=== PATIENT | male | born 1940 | race Caucasian/White ===

== ENCOUNTER 2018-01-22 14:15 | Outpatient (CLI) | payer OTHER ==
[~2018-01-22 14:15] MED LIST: AMARYL; AVAPRO150 MG; CIPRO500 MG PO; METFORMIN HCL500 M1 PO; NORVASC10 MG; OSEL75CA PO; ZYNCOF 20-400120 ML PO
== END 2018-01-22 14:16 | disposition home or self-care (01) ==
LOC: LAB 14:15
DX: N30.00 Acute cystitis without hematuria (principal)

== ENCOUNTER 2018-05-18 07:47 | Outpatient (CLI) | payer OTHER | END 2018-05-18 07:59 | disposition home or self-care (01) | LOC: LAB 07:47 | DX: N30.00 Acute cystitis without hematuria (principal) ==

== ENCOUNTER 2018-07-10 07:31 | Outpatient (CLI) | payer OTHER | END 2018-07-10 07:40 | disposition home or self-care (01) | LOC: LAB 07:31 | DX: N30.00 Acute cystitis without hematuria (principal) ==

== ENCOUNTER 2018-10-15 07:53 | Outpatient (CLI) | payer OTHER | END 2018-10-15 13:09 | disposition home or self-care (01) | LOC: LAB 07:53 | DX: N30.00 Acute cystitis without hematuria (principal) ==

== ENCOUNTER 2018-12-22 11:38 | Emergency (ER) | payer OTHER ==
[~2018-12-22] VITALS: Ht 172.7 cm; Wt 95.3 kg
== END 2018-12-22 14:32 | disposition home or self-care (01) ==
LOC: ER 11:38
DX: B34.9 Viral infection, unspecified (principal); J11.1 Influenza due to unidentified influenza virus with other respiratory manifestations

== ENCOUNTER → 2019-01-27 07:28 | Outpatient (CLI) | payer OTHER | END | disposition home or self-care (01) | LOC: LAB 07:28 | DX: C67.9 Malignant neoplasm of bladder, unspecified (principal) ==

== ENCOUNTER 2019-04-02 07:18 | Outpatient (CLI) | payer OTHER | END 2019-04-02 07:22 | disposition home or self-care (01) | LOC: LAB 07:18 | DX: N30.00 Acute cystitis without hematuria (principal) ==

== ENCOUNTER 2019-10-15 07:31 | Outpatient (CLI) | payer OTHER | END 2019-10-15 07:43 | disposition home or self-care (01) | LOC: LAB 07:31 | DX: N30.00 Acute cystitis without hematuria (principal) ==

== ENCOUNTER 2019-12-31 07:25 | Outpatient (CLI) | payer OTHER | END 2019-12-31 07:26 | disposition home or self-care (01) | LOC: TOM 07:25 | DX: R10.31 Right lower quadrant pain (principal); R10.32 Left lower quadrant pain ==

== ENCOUNTER 2021-09-03 10:24 | Emergency (ER) | payer OTHER ==
[~2021-09-03] VITALS: Ht 172.7 cm; Wt 91.2 kg
[2021-09-03] MEDS ORDERED: TUSSI PRES-B L480 ML PO (14:43)
[2021-09-03] MEDS ORDERED: LEVOFLOXACIN500 MG PO (14:43)
== END 2021-09-03 14:49 | disposition home or self-care (01) ==
LOC: ER 10:24
DX: J06.9 Acute upper respiratory infection, unspecified (principal); Z03.818 Encounter for observation for suspected exposure to other biological agents ruled out; R05.9 Cough, unspecified; R53.81 Other malaise

== ENCOUNTER 2021-09-13 09:31 | Inpatient (IN) | payer OTHER ==
[~2021-09-13] VITALS: Ht 172.7 cm; Wt 91.6 kg
[~2021-09-13 09:31] MED LIST changes: +LEVOFLOXACIN500 MG PO; +TUSSI PRES-B L480 ML PO
[2021-09-14] MEDS ORDERED: SIMVASTATIN20 MG (08:24)
[2021-09-14] MEDS ORDERED: TAMSULOSIN HCL0.4 MG (08:24)
[2021-09-14] MEDS ORDERED: GLIMEPIRIDE4 M1 (08:24)
[2021-09-14] MEDS ORDERED: CIPROFLOXACIN HC5 ML (08:24)
[2021-09-14] MEDS ORDERED: OMEPRAZOLE40 MG (08:24)
[2021-09-20] MEDS ORDERED: AMLODIPINE BESY10 MG PO (11:27)
[2021-09-20] MEDS ORDERED: AVAPRO150 MG PO (11:28)
[2021-09-20] MEDS ORDERED: METFORMIN HCL500 M1 PO (11:29)
[2021-09-20] MEDS ORDERED: GLIMEPIRIDE4 M1 PO (11:29)
[2021-09-20] MEDS ORDERED: VITAMIN B-121000 MCG PO (11:30)
[2021-09-20] MEDS ORDERED: VITAMIN D3125 MC2 PO (11:30)
[2021-09-20] MEDS ORDERED: VITAMIN C500 M1 PO (11:30)
[2021-09-20] MEDS ORDERED: PYRIDOXINE HCL100 MG PO (11:30)
[2021-09-20] MEDS ORDERED: RAYOS5 MG PO (11:31)
== END 2021-09-20 14:01 | disposition home or self-care (01) | DRG 177 ==
LOC: ER 09:31 → MEDJ 17:22
PROVIDERS: ADMIT Internal Medicine; ATTEND Internal Medicine
PROC: BW24ZZZ Computerized Tomography (CT Scan) of Chest and Abdomen (ICD-10-PCS; principal; 2021-09-14)
PROC: 4A12X4Z Monitoring of Cardiac Electrical Activity, External Approach (ICD-10-PCS; 2021-09-14)
DX: U07.1 COVID-19 (principal); J12.82 Pneumonia due to coronavirus disease 2019; R06.02 Shortness of breath; R09.89 Other specified symptoms and signs involving the circulatory and respiratory systems; I10 Essential (primary) hypertension; E11.9 Type 2 diabetes mellitus without complications; Z79.4 Long term (current) use of insulin

== ENCOUNTER 2021-09-24 13:16 | Emergency (ER) | payer OTHER ==
[~2021-09-24] VITALS: Ht 172.7 cm; Wt 93.0 kg
[~2021-09-24 13:16] MED LIST changes: +AMLODIPINE BESY10 MG PO; +AVAPRO150 MG PO; +CIPROFLOXACIN HC5 ML; +GLIMEPIRIDE4 M1; +GLIMEPIRIDE4 M1 PO; +OMEPRAZOLE40 MG; +PYRIDOXINE HCL100 MG PO; +RAYOS5 MG PO; +SIMVASTATIN20 MG; +TAMSULOSIN HCL0.4 MG; +VITAMIN B-121000 MCG PO; +VITAMIN C500 M1 PO; +VITAMIN D3125 MC2 PO
== END 2021-09-24 17:59 | disposition home or self-care (01) ==
LOC: ER 13:16
DX: I95.2 Hypotension due to drugs (principal); R55 Syncope and collapse

== ENCOUNTER → 2022-08-13 | Emergency (ER) | payer OTHER ==
[~2022-08-13] VITALS: Ht 172.7 cm; Wt 90.7 kg
== END | disposition home or self-care (01) ==
LOC: ER 03:46
DX: B34.9 Viral infection, unspecified (principal); I10 Essential (primary) hypertension; Z20.822 Contact with and (suspected) exposure to COVID-19; R09.81 Nasal congestion

== ENCOUNTER 2023-05-08 16:45 | Emergency (ER) | payer OTHER ==
[~2023-05-08] VITALS: Ht 172.7 cm; Wt 86.2 kg
== END 2023-05-08 19:39 | disposition home or self-care (01) ==
LOC: ER
PROVIDERS: General Practice
DX: R42 Dizziness and giddiness (principal); Z20.822 Contact with and (suspected) exposure to COVID-19

== ENCOUNTER 2024-03-12 10:25 | Emergency (ER) | payer OTHER ==
[~2024-03-12] VITALS: Ht 170.2 cm; Wt 90.7 kg
[2024-03-12 11:43] LABS: HEMATOCRIT 37.6 % (39.0-48.0); MEAN CELL VOLUME 85.4 fL (80.0-100.00); MEAN CORPUSCULAR HEMOGLOBIN 29.5 pg (27.00-32.0); MEAN CORPUSCULAR HGB CONC 34.6 g/dl (32.0-36.0); PLATELET COUNT 221 K/uL (150-450); RED BLOOD COUNT 4.41 M/uL (4.00-6.00); RED CELL DISTRIBUTION WIDTH 14.6 % (11.5-14.5)
[2024-03-12 11:47] LABS: URINE APPEARANCE Clear; URINE BILIRRUBIN Negative (NEGATIVE); URINE BLOOD Negative; URINE COLOR Yellow; URINE GLUCOSE Negative (NEGATIVE); URINE LEUKOCYTE Trace; URINE NITRATE Negative; URINE PROTEIN Trace (NEGATIVE)
[2024-03-12 11:50] LABS: URINE BACTERIA 11.3 uL (0.0-1933); URINE WBC 11.1 uL (0.0-23.2)
[2024-03-12 11:51] LABS: URINE RBC 0.7 uL (0.0-20.8)
[2024-03-12 12:27] LABS: CALCIUM 9.1 mg/dL (8.5-10.1); CREATININE SERUM 1.54 mg/dL (0.70-1.30); GFR 43.46; POTASSIUM 3.19 mEq/L (3.5-5.1)
== END 2024-03-12 13:20 | disposition home or self-care (01) ==
LOC: ER 10:27
PROVIDERS: General Practice
DX: U07.1 COVID-19 (principal); Z20.822 Contact with and (suspected) exposure to COVID-19